=== PATIENT | male | born 1960 | race Caucasian/White ===

== ENCOUNTER 2022-06-15 16:26 | Emergency (ER) | payer SELFPAY ==
[~2022-06-15] VITALS: Ht 162.6 cm; Wt 81.6 kg
[2022-06-15 16:37] VITALS: BP 150/75
--- NOTE | 2022-06-15 16:37 | NUR ---
BIBS SORETHROAT, FEVER, CHILLS, RUNNY NOSE SINCE YESTERDAY. COUGH. NO SOB OR CHEST PAIN. AMBULATORY. AAOX4. RESP EVEN AND NONLABORED. VSS
[2022-06-15] MEDS ORDERED: SUD30 PO (17:52)
[2022-06-15] MEDS ORDERED: IBUP-2213 PO (17:52)
[2022-06-15] MEDS ORDERED: PROM118S5 PO (17:52)
[2022-06-15] MEDS ORDERED: LIDO15SO4 PO (17:52)
--- NOTE | 2022-06-15 18:11 | NUR ---
COVID AND FLU SENT TO LAB
[2022-06-15 18:16] VITALS: BP 148/76
[2022-06-15] MEDS ORDERED: TOMOMETER 1 DEV DEV MC ONE (23:32)
== END 2022-06-15 18:13 | disposition home or self-care (01) ==
LOC: MED 16:26
DX: J06.9 Acute upper respiratory infection, unspecified (principal); Z20.822 Contact with and (suspected) exposure to COVID-19; E11.9 Type 2 diabetes mellitus without complications; N18.9 Chronic kidney disease, unspecified; Z79.4 Long term (current) use of insulin; Z79.899 Other long term (current) drug therapy
CPT/HCPCS: 99283